=== PATIENT | male | born 1965 | race Caucasian/White ===

== ENCOUNTER 2023-11-24 09:46 | Outpatient (OUT) | payer OTHER, SELFPAY ==
--- NOTE | 2023-11-24 10:00 | CA_ITS ---
Patient Name: MARKO SIMON MR#: [id number] : 1965 Exam Date: 11/24/2023 Ordering Doctor: DR ROSALEE SALAZAR D.O. ECHOCARDIOGRAM REPORT PROCEDURE: CA ECHO DOPPLER COMPLETE INDICATIONS: Congestive heart failure, hypertension COMPARISON: None. DESCRIPTION: COMPLETE ECHOCARDIOGRAM Real-time transthoracic echocardiography with 2D, M-mode, spectral and color flow Doppler performed. QUALITY: Technically difficult due to poor acoustics LEFT VENTRICLE: Severe dilatation. Mild left ventricular hypertrophy. LV EF: Global left ventricular systolic function is severely reduced; visually estimated ejection fraction is 10 to 15%. Unable to assess regional wall motion abnormalities. Calculated left ventricular ejection fraction is 11%. DIASTOLIC: Unable to assess diastolic function. ATRIAL SEPTUM: Inadequately seen. LEFT ATRIUM: Severe dilatation. RIGHT ATRIUM: Severe dilatation. RIGHT VENTRICLE: Severe dilatation. Decreased right ventricular systolic function. TRICUSPID VALVE: Normal mobility and thickness. No stenosis with trivial regurgitation. Doppler studies reveal mildly (35-45) elevated right sided pressures. RVSP 40 mmHg MITRAL VALVE: Mildly thickened with normal mobility. There is no mitral annular calcification. Moderate mitral regurgitation. AORTIC VALVE: Normal trileaflet appearance. Thickened aortic valve. Normal leaflet mobility. No evidence of aortic valve stenosis. No aortic regurgitation. AORTIC ROOT: Normal diameter and appearance. PULMONIC VALVE: Not well visualized. PERICARDIUM: Trivial posterior pericardial effusion is seen. IVC: IVC is dilated (2.7 cm) with no collapse. CONCLUSION: 1. Global left ventricular systolic function is severely reduced; visually estimated ejection fraction is 10 to 15% 2. Severely dilated right ventricle with reduced systolic function 3. Severe biatrial enlargement 4. Mild left ventricular hypertrophy 5. Mildly elevated right ventricular systolic pressure; RVSP 40 mmHg 6. Moderate mitral regurgitation 7. A trivial posterior pericardial effusion is seen Adult Echocardiography Procedure Report Left Ventricle LVEDD (3.7 - 5.6 cm): 7.41 cm LVESD (2.2 - 4.0 cm): 7.06 cm LVIVS thickness (0.6 - 1.2 cm): 0.92 cm LVPW thickness (0.5 - 1.0 cm): 1.25 cm e': 0.09 m/s E - e': 8.99 LVOT Max Gradient: 2.23 mm[Hg] LVOT Area (cm2): 0.75 m/s Peak Velocity (LVOT): 0.75 m/s LVOT Diameter 2.39 cm Left Atrium LA Volume Index (2D A2C): 58.81 ml/m2 Left Atrium Systolic Dimension: 6.45 cm Mitral Valve MV E to A Ratio: 0.82 Mitral Valve A-Wave Peak Velocity: 0.98 m/s Mitral Valve E-Wave Peak Velocity: 0.81 m/s Right Ventricle Aorta AO Root Diam: 3.22 cm Aortic Valve AoV Area (Pe[place]): 3.19 cm2, 3.19 cm2 Peak Velocity(Antegrade Flow): 1.05 m/s Peak Gradient(Antegrade Flow): 4.42 mm[Hg] Tricuspid Valve Peak Velocity (Regurgitant Flow): 2.51 m/s Pulmonic Valve Mean Gradient: 0.89 mm[Hg] Mean Velocity: 0.44 m/s Peak Velocity: 0.68 m/s, 0.63 m/s Peak Gradient: 1.60 mm[Hg], 1.86 mm[Hg] Right Atrium Right Atrium Systolic Pressure: 107.78 ml, 107.78 ml Dictated by: Cristhian Chicas M.D. on 11/24/2023 at 15:28 Approved by: Cristhian Chicas M.D. on 11/24/2023 at 15:32
== END 2023-11-24 09:47 | disposition home or self-care (01) ==
LOC: CARD 09:49
PROVIDERS: PCP Family Medicine; Visit Provider Family Medicine
DX: I50.9 Heart failure, unspecified (principal)
CPT/HCPCS: 93306